=== PATIENT | female | born 1980 | race Caucasian/White ===

== ENCOUNTER 2019-10-22 05:08 | Emergency (ER) | payer BC, SELFPAY ==
[2019-10-22] MEDS ORDERED: predniSONE 20 MG TAB ONE (05:22)
== END 2019-10-22 05:27 | disposition home or self-care (01) ==
LOC: ERS 05:08
DX: M54.12 Radiculopathy, cervical region (principal); F17.210 Nicotine dependence, cigarettes, uncomplicated
CPT/HCPCS: 99283; J7512